=== PATIENT | female | born 1965 | race Caucasian/White ===

== ENCOUNTER 2017-03-30 15:07 | Emergency (ER) | payer OTHER ==
[2017-03-30 15:35] LABS: ABSOLUTE EOSINOPHILS # (AUTO) 0.1 10^3/uL (0.0-0.6); ABSOLUTE LYMPHOCYTES (AUTO) 1.3 10^3/uL (0.5-4.7); ABSOLUTE MONOCYTES (AUTO) 0.7 10^3/uL (0.1-1.4); ABSOLUTE NEUT (AUTO) 6.2 10^3/uL (1.7-8.2); BASOPHILS % (AUTO) 0.6 % (0-2); EOSINOPHILS % (AUTO) 0.6 % (0-6); HEMATOCRIT 38.8 % (36.0-47.0); HEMOGLOBIN 13.3 g/dL (12.0-15.5); HGB HCT DIFFERENCE 1.1; LYMPHOCYTES % (AUTO) 15.6 % (13-45); MEAN CORPUSCULAR HEMOGLOBIN 31.7 pg (27.0-33.4); MEAN CORPUSCULAR HGB CONC 34.3 g/dL (32.0-36.0); MEAN CORPUSCULAR VOLUME 93 fl (80-97); MONOCYTES % (AUTO) 8.1 % (3-13); RED BLOOD COUNT 4.19 10^6/uL (3.72-5.28); RED CELL DISTRIBUTION WIDTH 15.2 % (11.5-14.0); SEGMENTED NEUTROPHILS % (AUTO) 75.1 % (42-78); WHITE BLOOD COUNT 8.3 10^3/uL (4.0-10.5)
[2017-03-30] MEDS ORDERED: MECLIZINE HCL 25 MG TABLET PO ONE (15:37)
[2017-03-30] MEDS ORDERED: ONDANSETRON HCL INJ/PF 4 MG/2 ML SDV IV ONE (15:37)
[2017-03-30] MEDS ORDERED: NORMAL SALINE 1000 ML 1,000 ML IV PRN (15:37)
[2017-03-30 15:58] LABS: ALANINE AMINOTRANSFERASE 60 U/L (9-52); ALBUMIN 4.7 g/dL (3.5-5.0); ALKALINE PHOSPHATASE 94 U/L (38-126); ANION GAP 17 (5-19); ASPARTATE AMINO TRANSFERASE 66 U/L (14-36); BILIRUBIN,DIRECT 0.5 mg/dL (0.0-0.4); BILIRUBIN,TOTAL 0.7 mg/dL (0.2-1.3); BLOOD UREA NITROGEN 13 mg/dL (7-20); CALCIUM 10.4 mg/dL (8.4-10.2); CARBON DIOXIDE 27 mmol/L (22-30); CHLORIDE 97 mmol/L (98-107); CREATININE RESULT 0.84 mg/dL (0.52-1.25); GLUCOSE 130 mg/dL (75-110); LIPASE 87.9 U/L (23-300); SODIUM 140.9 mmol/L (137-145); TOTAL PROTEIN 8.6 g/dL (6.3-8.2)
[2017-03-30 16:04] LABS: POTASSIUM 2.7 mmol/L (3.6-5.0)
[2017-03-30 16:13] LABS: FREE T3 3.76 pg/mL (2.77-5.27)
[2017-03-30 16:26] LABS: THYROID STIMULATING HORMONE 7.9 uIU/mL (0.47-4.68)
[2017-03-30] MEDS ORDERED: POTASSIUM CHLORIDE 10 MEQ TABLET.SA PO ONE (16:40)
[2017-03-30] MEDS ORDERED: POTASSI CL 20 MEQ/50 ML RIDER 50 ML IV ONE (16:42)
--- NOTE | 2017-03-30 16:43 | ER Document Report ---
ED General - General Chief Complaint: Vertigo Stated Complaint: VOMITING Time Seen by Provider: 03/30/17 15:22 Mode of Arrival: Stretcher Information source: Patient TRAVEL OUTSIDE OF THE [place] IN LAST 30 DAYS: No - HPI Patient complains to provider of: vertigoo, nausea and vomiting Onset: Just prior to arrival Onset/Duration: Sudden Quality of pain: No pain Associated symptoms: Nausea, Vomiting Exacerbated by: Movement Relieved by: Denies Similar symptoms previously: Yes Notes: Is a 51-year-old female with a history of Mnire's disease, hypothyroidism, who presents to the emergency room complaining of vertigo-like symptoms with dizziness, nausea and vomiting that started after turning her head sharply while at work, she has a history of multiple similar episodes in the past, normally she takes Valium at home and triamterene with resolution of symptoms, however today she started having vomiting and was unable to tolerate p.o. Valium , she reports continued dizziness but nausea and vomiting has improved since receiving medications and IV fluids via EMS in route - Related Data Allergies/Adverse Reactions: No Known Allergies Allergy (Verified 02/20/16 14:09) Past Medical History - General Information source: Patient - Social History Smoking Status: Never Smoker Chew tobacco use (# tins/day): No Frequency of alcohol use: None Drug Abuse: None Family History: Reviewed & Not Pertinent Past Surgical History: Reports: Hx Adenoidectomy, Hx Appendectomy, Hx Breast Surgery, Hx Section, Hx Cholecystectomy, Hx Tonsillectomy - Immunizations Immunizations up to date: Yes Hx Diphtheria, Pertussis, Tetanus Vaccination: No Review of Systems - Review of Systems Constitutional: No symptoms reported EENT: No symptoms reported Cardiovascular: See HPI Respiratory: No symptoms reported Gastrointestinal: See HPI Genitourinary: No symptoms reported Female Genitourinary: No symptoms reported Musculoskeletal: No symptoms reported Skin: No symptoms reported Hematologic/Lymphatic: No symptoms reported Neurological/Psychological: No symptoms reported -: Yes All other systems reviewed and negative Physical Exam - Vital signs Vitals: Temp Pulse Resp BP Pulse Ox 98.0 F 105 H 16 105/79 98 03/30/17 15:15 03/30/17 15:15 03/30/17 15:15 03/30/17 15:15 03/30/17 15:15 Interpretation: Normal - General General appearance: Appears well, Alert - HEENT Head: Normocephalic, Atraumatic Eyes: Normal Pupils: PERRL - Respiratory Respiratory status: No respiratory distress Chest status: Nontender Breath sounds: Normal Chest palpation: Normal - Cardiovascular Rhythm: Regular Heart sounds: Normal auscultation Murmur: No - Abdominal Inspection: Normal Distension: No distension Bowel sounds: Normal Tenderness: Nontender Organomegaly: No organomegaly - Back Back: Normal, Nontender - Extremities General upper extremity: Normal inspection, Nontender, Normal color, Normal ROM , Normal temperature General lower extremity: Normal inspection, Nontender, Normal color, Normal ROM , Normal temperature, Normal weight bearing. No: Odry's sign - Neurological Neuro grossly intact: Yes Cognition: Normal Orientation: AAOx4 [place] Coma Scale Eye Opening: Spontaneous [place] Coma Scale Verbal: Oriented [place] Coma Scale Motor: Obeys Commands [place] Coma Scale Total: 15 Speech: Normal Motor strength normal: LUE, RUE, LLE, RLE Sensory: Normal - Psychological Associated symptoms: Normal affect, Normal mood - Skin Skin Temperature: Warm Skin Moisture: Dry Skin Color: Normal Course - Re-evaluation Re-evalutation: 03/30/17 19:35 Patient resting comfortably on stretcher, reports feeling much better, was able to ambulate to the bathroom with minimal symptoms, however she does report when her symptoms get to the point of vomiting in the past it typically takes 2 or 3 days to dissipate completely, she is noted to have a low potassium today, other lab values including her thyroid function studies were discussed at bedside, she was provided with oral and IV potassium replacement, as well as fluids and other medications, plan to discharge patient with prescriptions for potassium supplementation and meclizine, recommend follow-up with primary care provider or return if symptoms worsen, patient acknowledges understanding and agreement with this plan - Vital Signs Vital signs: Temp Pulse Resp BP Pulse Ox 98.0 F 105 H 16 127/93 H 96 03/30/17 15:15 03/30/17 15:15 03/30/17 19:01 03/30/17 19:01 03/30/17 19:01 - Laboratory Result Diagrams: 03/30/17 15:20 03/30/17 15:20 Laboratory results interpreted by me: 03/30/17 03/30/17 03/30/17 15:20 15:20 15:20 RDW 15.2 H Potassium 2.7 L* Chloride 97 L Glucose 130 H Calcium 10.4 H Direct Bilirubin 0.5 H AST 66 H ALT 60 H Total Protein 8.6 H TSH 7.90 H Discharge - Discharge Clinical Impression: Vertigo, Hypokalemia Nausea and vomiting Qualifiers: Vomiting type: unspecified Vomiting Intractability: non-intractable Qualified Code(s): R11.2 - Nausea with vomiting, unspecified Condition: Stable Disposition: HOME, SELF-CARE Instructions: Intravenous (IV) Fluids ([facility]), Vertigo ([facility]), Potassium ([facility]) Additional Instructions: Follow up with your primary care provider in one to 2 days. Return to the emergency room immediately if symptoms worsen or any additional concerns. Prescriptions: Meclizine HCl [Antivert 25 mg Tablet] 25 mg PO TID #20 tablet Potassium Chloride 40 meq PO DAILY #10 tab.er.[email or web address]
[2017-03-30 17:08] LABS: APPEARANCE,URINE CLEAR; BILIRUBIN,URINE NEGATIVE (NEGATIVE); GLUCOSE, URINE NEGATIVE (NEGATIVE); KETONES,URINE NEGATIVE (NEGATIVE); LEUKOCYTE ESTERASE,URINE NEGATIVE (NEGATIVE); NITRITE,URINE NEGATIVE (NEGATIVE); PROTEIN,URINE NEGATIVE (NEGATIVE); UROBILINOGEN,URINE NEGATIVE mg/dL (<2.0)
[2017-03-30 20:56] VITALS: BP 131/89
== END 2017-03-30 20:48 | disposition home or self-care (01) ==
LOC: ER 15:07
DX: R42 Dizziness and giddiness (principal); E87.6 Hypokalemia; R11.2 Nausea with vomiting, unspecified; E03.9 Hypothyroidism, unspecified; Z90.49 Acquired absence of other specified parts of digestive tract
CPT/HCPCS: 99284; 96361; 96375; 96365; 96366; 36415; 87086; 84439; 83690; 83735; 84443; 85025; 80053; 81001; 84481; J2405; J3480; J7030

== ENCOUNTER → 2018-08-23 | Outpatient (CLI) | payer OTHER ==
--- NOTE | 2018-08-23 10:41 | RADIOLOGY REPORT (SQ) ---
EXAM DESCRIPTION: CAROTID DOPPLER COMPLETED DATE/TIME: 08/23/2018 10:14 am REASON FOR STUDY: HYPERLIPIDEMIA/FAMILY HX OF CAROTID DISEASE E78.5 HYPERLIPIDEMIA, UNSPECIFIED COMPARISON: None. TECHNIQUE: Grayscale ultrasound, Doppler velocity and spectra, and color Doppler images acquired of the extra-cranial carotid and vertebral arteries. Images stored on PACS. LIMITATIONS: None. FINDINGS: RIGHT CAROTID CCA Velocities: Within normal limits. ICA Velocities Peak systolic 0.93 m/s. End diastolic 0.39 m/s. Proximal ICA/CCA peak systolic ratio 0.84. Plaque in the carotid bulb and proximal internal carotid artery. LEFT CAROTID CCA Velocities: Within normal limits. ICA Velocities Peak systolic 0.92 m/s. End diastolic 0.34 m/s. Proximal ICA/CCA peak systolic ratio 0.94. Spectra normal. No significant plaque. VERTEBRAL ARTERIES: Antegrade flow. Normal waveforms. SUBCLAVIAN ARTERIES: No finding. OTHER: No other significant finding. IMPRESSION: NO HEMODYNAMICALLY SIGNIFICANT STENOSIS. COMMENT: Quality ID #[id number]: Velocity criteria are extrapolated from the diameter data as defined by t he Society of Radiologists in Ultrasound Consensus Conference. Radiology 2003: 229; 340-346. TECHNICAL DOCUMENTATION: JOB ID: [id number] [employer]- All Rights Reserved Reading location - IP/workstation name: [facility]
== END ==
LOC: SP 08:34
PROVIDERS: ATTEND Family Medicine
DX: I65.21 Occlusion and stenosis of right carotid artery (principal); E78.5 Hyperlipidemia, unspecified; Z83.3 Family history of diabetes mellitus
CPT/HCPCS: 93880